=== PATIENT | male | born 1960 ===

== ENCOUNTER → 2016-10-14 | Outpatient (CLI) | payer BC ==
[2016-10-14 15:14] LABS: HEMOGLOBIN 16.5 g/dl (13.5-18.0)
[2016-10-14 15:20] LABS: HEMATOCRIT 45.9 % (42.0-52.0)
== END ==
LOC: COL.LAB 13:21
PROVIDERS: Urology
DX: D45 Polycythemia vera (principal); E55.9 Vitamin D deficiency, unspecified; R53.83 Other fatigue; R68.82 Decreased libido; E31.8 Other polyglandular dysfunction